=== PATIENT | female | born 1940 | race Caucasian/White ===

== ENCOUNTER → 2021-09-01 | Outpatient (CLI) | payer MEDICARE ==
[2021-09-01 14:16] LABS: Partial Thromboplastin Time 28.8 sec (22.0-30.0)
[2021-09-01 17:44] LABS: HCT 35.1 % (37.2-46.3); HGB 11.2 g/dL (12.0-15.0); MCH 32.3 pg (27.0-32.0); MCHC 31.9 g/dL (32.0-37.0); MCV 101.2 fL (80.0-97.0); Mean Platelet Volume 10.9 fL (9.5-12.2); NRBC Per 100 WBC 0 /100 WBCS (0.0-0.0); Platelet Count 231 X 10*3/uL (140-440); RBC 3.47 X 10*6/uL (4.10-5.20); RDW 13.4 % (11.5-14.5); WBC 7.47 X 10*3/uL (4.50-10.00)
[2021-09-01 18:25] LABS: African American GFR (CKD) 48.7 (60.0-200.0); Albumin 4.2 g/dL (3.8-4.9); Albumin/Globulin Ratio 1.83 (1.60-3.17); Anion Gap 10.6 mmol/L (10.00-18.00); BUN/Creat Ratio 17.25 Ratio (12.00-20.00); Blood Urea Nitrogen 20.7 mg/dL (9.0-27.0); Calcium 9.9 mg/dL (8.7-10.3); Carbon Dioxide 25.4 mmol/L (20.0-27.5); Globulin 2.3 g/dL (1.6-3.3); Non-African American GFR(CKD) 42.1 (60.0-200.0); Potassium 4.5 mmol/L (3.5-5.5); Total Bilirubin 0.6 mg/dL (0.30-1.20); Total Protein 6.5 g/dL (6.2-8.2)
[2021-09-01 21:14] LABS: INR 1.2 (<1.2); Prothrombin Time 12.3 sec (9.0-12.0)
[2021-09-02 02:02] LABS: Appearance,Urine Cloudy (Clear); Bilirubin,Urine Negative (Negative); Blood,Urine Trace (Negative); Color,Urine Yellow (Yellow); Ketones,Urine Negative (Negative); Nitrite,Urine Negative (Negative); Specific Gravity,Urine 1.008 (1.001-1.030); Urobilinogen,Urine 0.2 (0.2,1.0)
[2021-09-02 02:22] LABS: Bacteria,Urine Trace /HPF (None Seen)
--- NOTE | 2021-09-02 15:57 | XR ---
EXAMINATION TYPE: XR chest 2V DATE OF EXAM: 09/01/2021 COMPARISON: NONE HISTORY: Presurgical TECHNIQUE: Frontal and lateral views of the chest are obtained. FINDINGS: Suspected minimal left basal pulmonary atelectasis. Questionable mild COPD changes, for correlation w ith pulmonary function tests. Grossly unremarkable remainder of the lungs. No sizable pleural effusion or definite pneumothorax. Sl ightly increased cardiac transverse diameter. Degenerative changes of the thoracic spine. IMPRESSION: As above.
== END | disposition home or self-care (01) ==
LOC: LABPAT 12:49
PROVIDERS: ATTEND Orthopaedic Surgery Orthopaedic Surgery of the Spine
DX: Z01.818 Encounter for other preprocedural examination (principal); M47.814 Spondylosis without myelopathy or radiculopathy, thoracic region; M48.00 Spinal stenosis, site unspecified
CPT/HCPCS: 71046; 80053; 81001; 85027; 85610; 85730

== ENCOUNTER 2021-09-13 06:10 | Observation (INO) | payer MEDICARE ==
[2021-09-08 16:08] VITALS: BMI 40.2
[~2021-09-13 06:10] MED LIST: ceFAZolin 1,000 MG in SODIUM CHLORIDE 0.9% IRRIGATIO 1,000 ML IRRIGATION PRN
[2021-09-13] MEDS ORDERED: MIDAZOLAM 2 MG/2 ML VIAL IV PRN (06:25)
[2021-09-13] MEDS ORDERED: DEXAMETHASONE SOD PHOSPHATE 4 MG/ML 1 ML VIAL IV ONE (06:25)
[2021-09-13] MEDS ORDERED: ONDANSETRON 4 MG/2 ML VIAL IVP ONE (06:25)
[2021-09-13] MEDS: LACTATED RINGERS 1,000 ML IV SCH (07:12)
[2021-09-13] MEDS ORDERED: LIDOCAINE 1% (10MG/ML) FOR IV START INTRADERMA ONE (07:14)
[2021-09-13 07:16] LABS: Glucose,Whole Blood 140 mg/dL (70-110)
[2021-09-13] MEDS ORDERED: SUCCINYLCHOLINE CHLORIDE 100 MG/5 ML SYR IV ONE (07:32)
[2021-09-13] MEDS ORDERED: NEOSTIGMINE 1 MG/ML 10 ML VIAL ONE (07:32)
[2021-09-13] MEDS ORDERED: fentaNYL (PF) 50 MCG/ML 2 ML AMP ONE (07:32)
[2021-09-13] MEDS ORDERED: PROPOFOL 10 MG/ML 20 ML VIAL IV ONE (07:32)
[2021-09-13] MEDS ORDERED: GLYCOPYRROLATE 0.2 MG/ML 2 ML VIAL ONE (07:32)
[2021-09-13] MEDS ORDERED: LIDOCAINE 2% INJ 20 MG/ML (2 ML VIAL) ONE (07:32)
[2021-09-13] MEDS ORDERED: ROCURONIUM 10 MG/ML (5 ML VIAL) IV ONE (07:32)
[2021-09-13] MEDS ORDERED: MIDAZOLAM 2 MG/2 ML VIAL ONE (07:32)
[2021-09-13] MEDS ORDERED: LIDOCAINE 1%-EPI 1:100,000 20 ML VIAL SQ ONE ×2 (08:10→08:18)
[2021-09-13] MEDS ORDERED: GELATIN SPONGE,ABSORB (LARGE) 1 EACH SPONGE TOPICAL ONE (08:16)
[2021-09-13] MEDS ORDERED: methylPREDNISolone ACETATE 80 MG/ML 1 ML VIAL MISCELLANE ONE (08:17)
[2021-09-13] MEDS ORDERED: THROMBIN (BOVINE) 5,000 UNIT VIAL TOPICAL ONE (08:17)
[2021-09-13] MEDS ORDERED: methylPREDNISolone ACETATE 40 MG/ML 1 ML VIAL MISCELLANE ONE (09:10)
[2021-09-13] MEDS ORDERED: LACTATED RINGERS 1,000 ML IV ONE (09:28)
[2021-09-13] MEDS ORDERED: SENNOSIDES-DOCUSATE SODIUM 1 EACH TAB PO PRN (09:33)
[2021-09-13] MEDS ORDERED: ONDANSETRON 4 MG/2 ML VIAL IVP PRN (09:33)
[2021-09-13] MEDS ORDERED: IBUPROFEN 600 MG TAB PO PRN (09:33)
[2021-09-13] MEDS ORDERED: CYCLOBENZAPRINE 5 MG TAB PO PRN (09:33)
[2021-09-13] MEDS ORDERED: HYDROmorphone 0.5 MG/0.5 ML SYRINGE IVP PRN (09:33)
[2021-09-13] MEDS ORDERED: KETOROLAC 15 MG/ML 1 ML VIAL IVP PRN (09:33)
[2021-09-13] MEDS ORDERED: HYDROcodone/APAP 5-325MG 1 EACH TAB PO PRN (09:33)
[2021-09-13] MEDS ORDERED: BENZOCAINE/MENTHOL LOZENG 1 EACH LOZENGE MUCOUS MEM PRN (09:33)
--- NOTE | 2021-09-13 09:47 | P.OP ---
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 Snell Architecture Department Chair: Jose Felipe is present throughout the entire the case persistence during positioning, dissection, exposure, visualization, and all crucial elements of the case as well as closure. Anesthesia: General anesthesia Estimated blood loss: Approximately 50 mL Complications: None apparent Components implanted: None Specimen: Epidural mass, presumed facet cyst from L4 5 centimeters pathology Disposition: To recovery room in good stable condition. OPERATIVE INDICATIONS The patient has been having issues in their lower back and lower extremities. She is having worsening pain despite conservative treatment. She is having severe issues particularly in her lower extremities on the left more than right. She is found have significant findings on her imaging with severe stenosis L3 4 and L4 5 with large spinal mass at the epidural space which appeared to be extradural and stemming from the facet on the left. The patient has been through conservative treatment. We discussed various treatment options including surgery, and the patient wishes to proceed with surgery We discussed the risk, patient's alternatives and benefits of surgery including but not limited to, risk of bleeding risk of infection, risk of need for further surgery, risk of decreased, loss of motion, loss of function, nerve damage, paralysis, heart attack, blindness and . The patient has severe degenerative changes in her lumbar spine as well as epidural mass and we discussed possibility of doing decompression as well as fusion. We discussed the fact that fusion surgery would be more involved with a long course of surgical intervention decreased risk as well as prolonged recovery. We'll see discussed possibility of decompression laminectomy removal of the epidural mass alone. She understands that this would not stabilize the area and she may go on to have worsening of her degenerative changes in her lumbar spine which may cause further changes as well as pain and may require other treatment including possibly surgical intervention. OPERATIVE SUMMARY After discussing all the risks, patient alternatives and benefits at length, the patient elected to proceed with surgical intervention, signed informed consent, and presented for their procedure. The patient was seen and examined in the preoperative holding area and the surgical site was marked. The patient was given antibiotics and brought to the operating room. The patient was sedated and intubated by anesthesia in standard fashion. The patient was positioned on to the operating room table in a prone position on the appropriate frame which was well-padded and well molded. We were careful to pad any bony prominences and pressure points. We were careful to maintain the patient's cervical spine and good neutral alignment and position throughout. The patient was prepped and draped in a normal standard fashion. An appropriate timeout and keystone protocol performed. We were able to proceed with the surgery. Fluoroscopy was utilized to establish the appropriate level. The local wound area was infiltrated with local anesthetic. An incision was made at the midline longitudinally over the appropriate levels from L3 to L5. Dissection was taken down subcutaneously to the level of the fascia which was split midline. Dissection was taken over the lamina. Intraoperative fluoroscopy was taken which showed a marker at the appropriate level at L4 5. With the appropriate level positively confirmed, we were able to proceed with laminectomy first at L4 5 and then at L3 4. The wound was copiously irrigated and suctioned dry as had been done periodically throughout the case. I performed a laminectomy with a combination of curettes and a high- speed bur and Kerrison rongeurs. There is severe evidence of facet arthrosis and osteophytic spurring both at L3 4 and L4 5. Do not see any obvious lysis. A small medial facetectomy was performed again further access. A partial foraminotomy was also performed. Portions of the ligamentum flavum were taken down to expose the dura and traversing nerve root. I was able to mobilize the traversing nerve root and gain access to the disc space. At both levels I was able to get excellent decompression with partial foraminotomy and medial facetectomy. At L4 5 there is obvious structural change. There was a cystic-type structure partially adherent to the dura itself. I was able to mobilize the cystic structure and remove it from most of the dura. It measured approximately 1.5 x 1.5. It seemed to be moderately fluctuant and opaque and a dull whitish white on the outside. Grossly appeared to be facet cyst. We traced back to L4 5 facet joint. I was able to remove the vast bulk of the structure. This was sent for pathology. There is some fibers adherent to the dura which I left intact. This gave excellent decompression at the L4 5 space and great reduction of the stenosis. There is no evidence of dural tear or leak. Good hemostasis maintained. The wound was copiously irrigated and suctioned dry. Good decompression was noted at both L3 4 L4 5. We were able to proceed with closure. The fascia was closed for a watertight closure. The subcuticular tissue was closed with absorbable suture. The wound was cleaned and dried and dressed with the appropriate dressing. The drapes were broken down. The patient was gently rolled back onto their hospital bed being careful to maintain their cervical spine and good neutral alignment and position. They were woken up by anesthesia, extubated, and brought to the recovery room in good stable condition. The patient will be admitted to the hospital for observation and for appropriate postoperative care, medical management and monitoring. We will continue to follow them closely about the postoperative course.
[2021-09-13] MEDS: HYDROmorphone 0.5 MG/0.5 ML SYRINGE IVP PRN ×2 (10:03→10:12)
--- NOTE | 2021-09-13 13:27 | FL ---
Fluoroscopy HISTORY: Lumbar laminectomy 3 seconds fluoroscopy time supplied to the referring clinician. 1 intraoperative C-arm images docume nt the procedure. See dictated report from orthopedic surgery.
[2021-09-13] MEDS: SODIUM CHLORIDE 0.9% 1,000 ML IV SCH (14:24)
[2021-09-13] MEDS: NON FORMULARY DRUG (Nateglinide 120 MG Tab) PO SCH ×2 (14:29→16:58)
[2021-09-13 14:57] LABS: Glucose,Whole Blood 129 mg/dL (70-110)
[2021-09-13] MEDS: metFORMIN 500 MG TAB PO SCH (16:59)
[2021-09-13 17:09] LABS: Glucose,Whole Blood 169 mg/dL (70-110)
[2021-09-13 20:50] LABS: Glucose,Whole Blood 177 mg/dL (70-110)
[2021-09-13] MEDS: NITROFURANTOIN MONOHYD/M-CRYST 100 MG CAP PO SCH ×2 (20:56→21:00)
[2021-09-13] MEDS ORDERED: atenoloL 25 MG TAB PO SCH (21:00)
[2021-09-13] MEDS ORDERED: ATORVASTATIN 20 MG TAB PO SCH (21:00)
[2021-09-13 21:21] VITALS: RESP 18
[2021-09-14] MEDS: SODIUM CHLORIDE 0.9% 1,000 ML IV SCH (00:14)
[2021-09-14 05:25] VITALS: BP 106/63; PULSE 77; TEMP 98.1
[2021-09-14] MEDS: LACTATED RINGERS 1,000 ML IV SCH (06:17)
[2021-09-14 07:33] LABS: Glucose,Whole Blood 169 mg/dL (70-110)
[2021-09-14] MEDS: metFORMIN 500 MG TAB PO SCH (07:59)
[2021-09-14] MEDS: NON FORMULARY DRUG (Nateglinide 120 MG Tab) PO SCH (07:59)
[2021-09-14] MEDS: NITROFURANTOIN MONOHYD/M-CRYST 100 MG CAP PO SCH (08:48)
--- NOTE | 2021-09-14 08:50 | P.DS ---
Providers Date of admission: 09/14/21 07:37 Expected date of discharge: 09/14/21 Attending physician: Lucas Snell Consults: 09/13/21 09:33 Consult Physician Routine Consulting Provider: Magdiel Collazo Consult Reason/Comments: Medical management Do you want consulting provider notified?: Yes Primary care physician: Maritza Collazo - Discharge Diagnosis(es) (1) Lumbar epidural mass Current Visit: Yes Status: Acute (2) Lumbar stenosis with neurogenic claudication Current Visit: Yes Status: Acute (3) Lumbar facet arthropathy Current Visit: Yes Status: Acute (4) Lumbar degenerative disc disease Current Visit: Yes Status: Acute (5) Spondylolisthesis, lumbar region Current Visit: Yes Status: Acute (6) Radiculopathy with lower extremity symptoms Current Visit: Yes Status: Acute (7) Type 1 diabetes mellitus Current Visit: Yes Status: Acute (8) Hypertension Current Visit: Yes Status: Acute (9) Hyperlipidemia Current Visit: Yes Status: Acute (10) Unsteady gait Current Visit: Yes Status: Acute (11) History of shortness of breath Current Visit: Yes Status: Acute (12) Obesity Current Visit: Yes Status: Acute Hospital Course: This is a pleasant 80-year-old female who presented with L4-5 epidural mass, L3- 4 and L4-5 severe spinal stenosis and spondylolisthesis, lumbar facet arthrosis, lumbar degenerative disc disease, low back pain, and lower extremity radiculopathy who failed outpatient conservative therapy. She was admitted for an L3-4 and L4-5 laminectomy and decompression with partial medial facetectomy and foraminotomy with removal of intraspinal extradural spinal mass at L4-5. The patient tolerated the procedure well and did well postoperatively. She is very happy postoperatively. She has been able to ambulate all the way down the halls without any lower extremity leg pain. She has some discomfort at the surgical site but feels her pain is medically controlled. She has been avoiding much pain medication. She states she prefers to try to avoid narcotics but she does have some narcotic medication at home which was prescribed by her primary care provider. She feels she is ready for discharge home. Condition on day of discharge stable. Patient will be discharged home. Patient was cleared preoperatively for surgery by Dr. Collazo. Patient currently denies any nausea, vomiting, fever, or chills. Patient is eating and voiding freely without difficulty. Patient may shower Optifoam dressing intact. Patient may remove Optifoam dressing in 3 days and shower without a dressing at that time. Patient should refrain from driving until at least after their first follow-up appointment in the office. Patient should avoid excessive bending, lifting, and twisting; no lifting greater than 10 pounds. We did discuss the patient may continue with extra strength Tylenol OTC as prescribed as needed for pain control. We did discuss she may take the narcotic medication as previously prescribed by her primary care provider as needed for pain control. Prescriptions for [place] 5 mg/325 mg and Ultram 50 mg were previously sent to her regular pharmacy. She does not need to fiber picker these medications. Patient's other medical diagnoses include type 1 diabetes, hypertension, hyperlipidemia, unsteady gait, obesity, and history of shortness of breath. Patient may resume her other previously prescribed home medications. Physical Exam on day of discharge: Patient is awake, alert, and oriented 3 Vital signs stable Good chest excursion with deep inspiration and expiration Abdomen soft nontender No signs or symptoms of DVT; calves are soft; no erythema or warmth of the calves; negative Isaias's sign Extensor hallucis longus, plantarflexion, and dorsiflexion positive sustained bilateral lower extremities Incision is clean, dry, and intact; no erythema, purulence, or signs of infection Optifoam dressing intact Procedures: L3-4 and L4-5 laminectomy and decompression with partial medial facetectomy and foraminotomy with removal of intraspinal extradural spinal mass at L4-5 Patient Condition at Discharge: Stable Plan - Discharge Summary Discharge Rx Participant: No New Discharge Prescriptions: New traMADol HCl [Ultram] 50 mg PO Q6HR PRN #28 tab PRN Reason: Pain HYDROcodone/APAP 5-325MG [[place] 5-325] 1 tab PO Q6HR PRN #28 tab PRN Reason: Pain No Action Rivaroxaban [Xarelto] 20 mg PO HS Losartan [Cozaar] 50 mg PO QAM Atorvastatin [Lipitor] 20 mg PO HS metFORMIN HCL [Glucophage] 500 mg PO BID-W/MEALS Nateglinide [Starlix] 120 mg PO AC-TID Furosemide [Lasix] 20 mg PO DAILY Potassium Chloride [Potassium Chloride ER] 10 meq PO DAILY atenoloL 25 mg PO HS Semaglutide [Ozempic] 1 mg SQ ABEL nitrofurantoin macrocrystaL [Nitrofurantoin] 100 mg PO BID Electrolytes/Dextrose [Pedialyte Solution] 0 ml PO DIRECTED PRN PRN Reason: Diarrhea Discharge Medication List Atorvastatin [Lipitor] 20 mg PO HS 12/11/14 [History] Losartan [Cozaar] 50 mg PO QAM 12/11/14 [History] Nateglinide [Starlix] 120 mg PO AC-TID 12/11/14 [History] Rivaroxaban [Xarelto] 20 mg PO HS 12/11/14 [History] metFORMIN HCL [Glucophage] 500 mg PO BID-W/MEALS 12/11/14 [History] Electrolytes/Dextrose [Pedialyte Solution] 0 ml PO DIRECTED PRN 09/08/21 [History] Furosemide [Lasix] 20 mg PO DAILY 09/08/21 [History] Potassium Chloride [Potassium Chloride ER] 10 meq PO DAILY 09/08/21 [History] Semaglutide [Ozempic] 1 mg SQ ABEL 09/08/21 [History] atenoloL 25 mg PO HS 09/08/21 [History] nitrofurantoin macrocrystaL [Nitrofurantoin] 100 mg PO BID 09/08/21 [History] HYDROcodone/APAP 5-325MG [[place] 5-325] 1 tab PO Q6HR PRN #28 tab 09/13/21 [Rx] traMADol HCl [Ultram] 50 mg PO Q6HR PRN #28 tab 09/13/21 [Rx] Follow up Appointment(s)/Referral(s): Lucas Snell DO [Doctor of Osteopathic Medicine] - 2 Weeks (Patient may follow-up with Jose Fagan PA-C or Dr. Sadiq Snell at [facility] in 2-3 weeks following discharge. ) Activity/Diet/Wound Care/Special Instructions: Keep site clean. May shower with waterproof Optifoam intact. Do not soak in a tub. After 72 hours postoperatively, patient May remove dressing and then may shower with area uncovered. Leave glue intact and allow it to fray off on its own. May ambulate as tolerated. Avoid heavy or rigorous activity. No repetitive bending twisting or lifting. No overhead work. Discharge Disposition: HOME SELF-CARE
[2021-09-14] MEDS ORDERED: POTASSIUM CHLORIDE ER 10 MEQ TAB.ER.PRT PO SCH (09:00)
[2021-09-14] MEDS ORDERED: LOSARTAN 50 MG TAB PO SCH (09:00)
[2021-09-14] MEDS ORDERED: SENNOSIDES-DOCUSATE SODIUM 1 EACH TAB PO SCH (09:00)
[2021-09-14] MEDS ORDERED: FUROSEMIDE 20 MG TAB PO SCH (09:00)
[2021-09-14] MEDS ORDERED: PANTOPRAZOLE 40 MG/10 ML VIAL IVP SCH (09:30)
--- NOTE | 2021-09-14 10:38 | P.CONS ---
History of Present Illness - Reason for Consult Consult date: 09/14/21 Medical management diabetes mellitus, chronic atrial fibrillation, hyperten Requesting physician: Lucas Snell - Chief Complaint Spinal mass, stenosis, status post surgical repair - History of Present Illness This is an 80-year-old female with past medical history of chronic atrial fibrillation on Xarelto, diabetes mellitus, hypertension, former nicotine dependence, obstructive sleep apnea, wears BiPAP, osteoarthritis, degenerative disc disease and multiple other medical issues, admitted with low back pain with lower extremity radiculopathy, epidural spinal mass L4 5, severe spinal stenosis L3 4 L4 5,facet arthrosis, status post laminectomy and decompression of L3 4 L4 With partial medial facetectomy and foraminotomy L3 4 L4 5 And removal of intraspinal, extradural spinal mass from L4 5-presumed facet cyst, pathology pending. Tolerated procedure well. Patient has ambulated in the hallway, tolerating exertion well. Denies lightheadedness dizziness or focal deficits. Currently sitting up in chair , denies chest pain, palpitations or shortness of breath. Pain controlled. Consuming 25-100% of diet with no nausea vomiting or diarrhea. Denies abdominal pain. Passing flatus. Vital signs stable, maintaining O2 sats in the 90s on room air. Afebrile. Review of Systems Constitutional: Denied any fatigue denied any fever. Cardio vascular: denied any chest pain, palpitations Gastrointestinal denied any nausea vomiting Pulmonary: Denied any shortness of breath cough Neurologic denied any new focal deficits All inpatient medications were reviewed and appropriate changes in these medications as dictated in the interval history and assessment and plan. Past Medical History Past Medical History: Atrial Fibrillation, Cancer, CVA/TIA, Diabetes Mellitus, Hyperlipidemia, Hypertension, Osteoarthritis (OA), Sleep Apnea/CPAP/BIPAP Additional Past Medical History / Comment(s): Currently on antibiotic for UTI. HX TIA 2003. HX SKIN CANCER. DIVERTICULOSIS. INTERMITTENT LOOSE STOOLS. NO CPAP USE. VARICOSE VEINS. SOB WITH EXERTION. History of Any Multi-Drug Resistant Organisms: None Reported Past Surgical History: Cholecystectomy Additional Past Surgical History / Comment(s): BILATERAL CATARACTS, BILATERAL LASIK EYE SURGERY, COLONOSCOPY. Past Anesthesia/Blood Transfusion Reactions: No Reported Reaction Additional Past Anesthesia/Blood Transfusion Reaction / Comm: NO HX OF BLOOD TRANSFUSION. Past Psychological History: No Psychological Hx Reported Smoking Status: Former smoker, Light tobacco smoker Past Alcohol Use History: Occasional Additional Past Alcohol Use History / Comment(s): SMOKED SOCIALLY FRO APPR OXIMATELY 5 YRS. QUIT 55+ YRS AGO. Past Drug Use History: None Reported - Past Family History Father Additional Family Medical History / Comment(s): HEART PROBLEMS. Sister(s) Family Medical History: Cancer Additional Family Medical History / Comment(s): BREAST CANCER. Brother(s) Family Medical History: Coronary Artery Disease (CAD) Additional Family Medical History / Comment(s): CABG. Mother Family Medical History: Cancer Additional Family Medical History / Comment(s): BREAST CANCER. Medications and Allergies Home Medications Medication Instructions Recorded Confirmed Type Atorvastatin [Lipitor] 20 mg PO HS 12/11/14 09/13/21 History Losartan [Cozaar] 50 mg PO QAM 12/11/14 09/13/21 History Nateglinide [Starlix] 120 mg PO AC-TID 12/11/14 09/13/21 History Rivaroxaban [Xarelto] 20 mg PO HS 12/11/14 09/13/21 History metFORMIN HCL [Glucophage] 500 mg PO BID-W/MEALS 12/11/14 09/13/21 History Electrolytes/Dextrose [Pedialyte 0 ml PO DIRECTED PRN 09/08/21 09/13/21 History Solution] Furosemide [Lasix] 20 mg PO DAILY 09/08/21 09/13/21 History Potassium Chloride [Potassium 10 meq PO DAILY 09/08/21 09/13/21 History Chloride ER] Semaglutide [Ozempic] 1 mg SQ ABEL 09/08/21 09/13/21 History atenoloL 25 mg PO HS 09/08/21 09/13/21 History nitrofurantoin macrocrystaL 100 mg PO BID 09/08/21 09/13/21 History [Nitrofurantoin] HYDROcodone/APAP 5-325MG [[place] 1 tab PO Q6HR PRN #28 tab 09/13/21 Rx 5-325] traMADol HCl [Ultram] 50 mg PO Q6HR PRN #28 tab 09/13/21 Rx Allergies Allergy/AdvReac Type Severity Reaction Status Date / Time No Known Allergies Allergy Verified 09/13/21 06:55 Physical Exam Vitals: Vital Signs Temp Pulse Pulse Resp BP Pulse Ox 09/14/21 05:00 98.1 F 77 18 106/63 92 L 09/13/21 20:00 98.0 F 79 18 111/68 93 L 09/13/21 14:00 97.6 F 68 16 124/52 96 09/13/21 13:15 51 L 16 140/60 100 09/13/21 12:45 55 L 16 127/60 100 09/13/21 12:15 60 16 130/60 100 09/13/21 11:45 54 L 16 129/60 100 09/13/21 11:15 66 16 123/74 100 09/13/21 11:00 67 16 111/57 100 09/13/21 10:45 63 16 107/58 100 09/13/21 10:30 63 16 95/54 100 09/13/21 10:15 67 16 99/53 100 Intake and Output 09/13/21 09/14/21 09/14/21 22:59 06:59 14:59 Intake Total 225 800 225 Balance 225 800 225 Intake: Intake, IV Titration 225 800 225 Amount Sodium Chloride 0.9% 1, 225 750 225 000 ml @ 75 mls/hr IV . [id number] [facility]RI Rx#:[id number] ceFAZolin 2 gm In Sodium 50 Chloride 0.9% 50 ml @ 100 mls/hr IVPB Q8HR [facility] Rx# :[id number] Other: Voiding Method Toilet Toilet # Voids 1 PHYSICAL EXAM: VITAL SIGNS: As above GENERAL: Sitting up in chair, no acute distress HEENT: Conjunctivae normal. eyes normal. MMM. NECK: Supple, No JVD. No thyroid enlargement. No LNs CARDIOVASCULAR: S1, S2, irregular. No murmur RESPIRATION: Breath sounds diminished in the bases. No rhonchi or crackles. No bronchial breathing. ABDOMEN: Soft, nontender . No guarding. no masses palpable. No ascites, No hepatosplenomegaly.Bowel sounds heard. LEGS: No edema. no swelling, PSYCHIATRY: Alert and oriented X3, mood and affect normal. NERVOUS SYSTEM: Cranial N 2-12 grossly normal. Moves all 4 limbs. No focal deficits. Strength and sensation grossly intact.. Skin: Warm and dry, no rash Results Labs: Abnormal Lab Results - Last 24 Hours (Table) 09/13/21 09/13/21 09/13/21 Range/Units 14:55 17:07 20:39 POC Glucose (mg/dL) 129 H 169 H 177 H (70-110) mg/dL 09/14/21 Range/Units 07:31 POC Glucose (mg/dL) 169 H (70-110) mg/dL Assessment and Plan Assessment: Low back pain with lower extremity radiculopathy, epidural spinal mass L4 5, severe spinal stenosis L3 4 L4 5,facet arthrosis, status post laminectomy and decompression of L3 4 L4 With partial medial facetectomy and foraminotomy L3 4 L4 5 And removal of intraspinal, extradural spinal mass from L4 5-presumed facet cyst, pathology pending. Chronic atrial fibrillation, on Xarelto Diabetes mellitus type1 Hypertension Hyperlipidemia Morbid obesity, BMI 40 History of prior nicotine dependence Plan: Continue on current medication regime ,monitoring and symptomatic treatment. Home meds have been reviewed and resumed accordingly, including Xarelto. PPI added for GI prophylaxis. Aggressive pulmonary toileting with incentive spirometer reinforced.Pain management as per primary. Discharge planning in progress for today as per orthopedic spine surgery. Follow-up with PCP in one week. Thank you Dr. Snell for the consult. The impression and plan of care has been dictated as directed. : I performed a history and examination of this patient, discussed the same with the dictator. I agree with the dictator's note ,documented as a scribe. Any additional findings or plans will be noted.
[2021-09-14] MEDS ORDERED: RIVAROXABAN 20 MG TAB PO SCH (21:00)
[2021-09-19] MEDS ORDERED: NON FORMULARY DRUG (Semaglutide [Ozempic] 1 MG/0.75 ML Each) SQ SCH (09:00)
== END 2021-09-14 10:55 | disposition home or self-care (01) ==
LOC: OR 06:10 → 5NMEDONC 13:35 → OR 09-14 07:37
PROVIDERS: ADMIT Orthopaedic Surgery Orthopaedic Surgery of the Spine; ATTEND Orthopaedic Surgery Orthopaedic Surgery of the Spine
DX: M48.062 Spinal stenosis, lumbar region with neurogenic claudication (principal); M51.16 Intervertebral disc disorders with radiculopathy, lumbar region; M43.16 Spondylolisthesis, lumbar region; M47.26 Other spondylosis with radiculopathy, lumbar region; M48.9 Spondylopathy, unspecified; E78.5 Hyperlipidemia, unspecified; I13.0 Hypertensive heart and chronic kidney disease with heart failure and stage 1 through stage 4 chronic kidney disease, or unspecified chronic kidney disease; I50.9 Heart failure, unspecified; E10.22 Type 1 diabetes mellitus with diabetic chronic kidney disease; N18.30 Chronic kidney disease, stage 3 unspecified; I48.20 Chronic atrial fibrillation, unspecified; N39.0 Urinary tract infection, site not specified; E66.01 Morbid (severe) obesity due to excess calories; Z68.41 Body mass index [BMI] 40.0-44.9, adult; R42 Dizziness and giddiness; R06.02 Shortness of breath; G47.33 Obstructive sleep apnea (adult) (pediatric); M10.9 Gout, unspecified; R26.81 Unsteadiness on feet; Z97.3 Presence of spectacles and contact lenses; Z96.653 Presence of artificial knee joint, bilateral; Z97.2 Presence of dental prosthetic device (complete) (partial); Z98.890 Other specified postprocedural states; Z87.891 Personal history of nicotine dependence; M06.9 Rheumatoid arthritis, unspecified; I83.90 Asymptomatic varicose veins of unspecified lower extremity; Z85.828 Personal history of other malignant neoplasm of skin; Z87.19 Personal history of other diseases of the digestive system; Z90.49 Acquired absence of other specified parts of digestive tract; Z98.42 Cataract extraction status, left eye; Z98.41 Cataract extraction status, right eye; Z82.49 Family history of ischemic heart disease and other diseases of the circulatory system; Z80.3 Family history of malignant neoplasm of breast; Z86.73 Personal history of transient ischemic attack (TIA), and cerebral infarction without residual deficits; Z79.01 Long term (current) use of anticoagulants; Z79.899 Other long term (current) drug therapy; Z79.84 Long term (current) use of oral hypoglycemic drugs
CPT/HCPCS: 97162; 88342; 88307; 88341; 72100; 63267; G0378; J2250; J1030; J2710; J0690 ×3; J2405; J3010; J0330; J2704; J1170; J2001